=== PATIENT | male | born 1975 | race Caucasian/White ===

== ENCOUNTER → 2016-11-29 | Outpatient (CLI) | payer OTHER ==
[~2016-11-29] MED LIST: CHOL100045 PO; MULT-35 PO; OMEP40CA36 PO; OMG1KC PO; PANT40TA2 PO; SERT25TA PO; TEST75GE3 TD
--- NOTE | 2016-11-29 13:24 | Diagnostic Imaging Report ---
INDICATION: Heel pain. COMPARISON: None. FINDINGS: 3 views of the left foot demonstrate no acute fracture or dislocation. There are no focal osseous lesions. There is no soft tissue swelling. Joint spaces are well maintained. No radiopaque foreign bodies are seen. IMPRESSION: No acute fractures or dislocations of the left foot. Dictated by: Dictated on workstation # [id number]
== END ==
LOC: RAD 12:36
PROVIDERS: ATTEND Family Medicine
DX: M25.572 Pain in left ankle and joints of left foot (principal)
CPT/HCPCS: 73630

== ENCOUNTER → 2016-12-27 | Outpatient (CLI) | payer BC ==
--- NOTE | 2016-12-27 12:35 | Diagnostic Imaging Report ---
Three views of the left ankle. INDICATION: Left ankle pain. Findings: There is no fracture, dislocation or radiopaque from body. The ankle mortise is the preserved. IMPRESSION: Unremarkable exam. Dictated by: Dictated on workstation # [id number]
== END ==
LOC: RAD 10:49
PROVIDERS: ATTEND Family Medicine
DX: M25.572 Pain in left ankle and joints of left foot (principal)
CPT/HCPCS: 73610

== ENCOUNTER 2017-08-21 09:50 | Outpatient (CLI) | payer OTHER | END 2017-08-21 10:20 | disposition home or self-care (01) | LOC: SLEEP 09:50 | PROVIDERS: ATTEND Family Medicine | DX: G47.33 Obstructive sleep apnea (adult) (pediatric) (principal); R06.83 Snoring ==

== ENCOUNTER → 2018-06-29 | Outpatient (CLI) | payer OTHER ==
--- NOTE | 2018-06-29 09:32 | Diagnostic Imaging Report ---
PROCEDURE: US Gallbladder. TECHNIQUE: Multiple real-time grayscale images were obtained over the right upper quadrant in various projections. INDICATION: Abdominal pain. FINDINGS: Grayscale imaging of the gallbladder reveals no intraluminal filling defect. There is no gallbladder wall thickening or pericholecystic fluid. No intra or extrahepatic biliary ductal dilatation is identified. There is significant increased echogenicity throughout the liver indicating fatty infiltration. This does result in obscuration of the pancreas. No right renal, abdominal aortic or inferior vena caval abnormality is identified. There is no evidence of ascites. IMPRESSION: Fatty infiltration of the liver which limits evaluation of the pancreas. Otherwise, no acute abnormality is identified. Dictated by: Dictated on workstation # [id number]
== END ==
LOC: RAD 07:47
PROVIDERS: ATTEND Family Medicine
DX: K76.0 Fatty (change of) liver, not elsewhere classified (principal)
CPT/HCPCS: 76705